=== PATIENT | female | born 1955 | race Hispanic/Latino ===

== ENCOUNTER 2019-10-02 11:34 | Outpatient (CLI) | payer MEDICARE ==
--- NOTE | 2019-10-02 13:01 | XRay Report ---
RIGHT SHOULDER HISTORY: Fall 3 weeks ago with persistent pain. COMPARISON: None. TECHNIQUE: 3 views of the right shoulder were obtained. FINDINGS: Bones: No fracture or dislocation. Mild diffuse osteopenia. Joint spaces: Maintained. Soft tissues: No significant abnormality. Additional findings: None. IMPRESSION: Mild osteopenia but otherwise normal. Signer Name: Dorian Martinez MD Signed: 10/02/2019 12:56 PM Workstation Name: [id number]
== END 2019-10-02 11:35 | disposition home or self-care (01) ==
LOC: SPVIMAG 11:34
PROVIDERS: ATTEND Internal Medicine
DX: M85.811 Other specified disorders of bone density and structure, right shoulder (principal); M25.511 Pain in right shoulder